=== PATIENT | male | born 1995 | race Caucasian/White ===

== ENCOUNTER 2016-11-15 03:10 | Emergency (ER) | payer OTHER ==
[~2016-11-15] VITALS: Ht 188 cm; Wt 113.4 kg
--- NOTE | 2016-11-15 03:10 | NUR ---
PT BIB [facility], PREBOOK TAKEN TO OF
--- NOTE | 2016-11-15 03:15 | NUR ---
Dr. Dennison evaluating patient
--- NOTE | 2016-11-15 03:18 | NUR ---
PT MOVED TO BED 4
[2016-11-15 03:21] VITALS: BP 147/93
--- NOTE | 2016-11-15 03:28 | NUR ---
Dr. Dennison evaluating patient at bedside.
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
--- NOTE | 2016-11-15 03:40 | NUR ---
X-Ray at bedside.
--- NOTE | 2016-11-15 03:45 | NUR ---
PATIENT BIB [facility] [facility]. PATIENT EXAMINED BY DR. DENISE. PATIENT MEDICALLY CLEARED AND RELEASED IN CUSTODY IN STABLE CONDITION. ORIGINAL PRE-BOOK FORM GIVEN TO OFFICER MUNDO.
--- NOTE | 2016-11-15 03:45 | NUR ---
Patient discharged with v/s stable. Written and verbal after care instructions given and explained. Patient verbalized understanding. Ambulatory with steady gait. All questions addressed prior to discharge.
[2016-11-15 03:49] VITALS: BP 135/89
== END 2016-11-15 03:45 ==
LOC: MED 03:10
DX: Z02.89 Encounter for other administrative examinations (principal); S10.91XA Abrasion of unspecified part of neck, initial encounter; S60.812A Abrasion of left wrist, initial encounter; R07.89 Other chest pain; V89.2XXA Person injured in unspecified motor-vehicle accident, traffic, initial encounter; Y93.89 Activity, other specified; Y92.89 Other specified places as the place of occurrence of the external cause; Y99.8 Other external cause status
CPT/HCPCS: 71010; 99283; Q0092